=== PATIENT | male | born 1985 | race Caucasian/White ===

== ENCOUNTER 2020-06-23 10:58 | Outpatient (RCR) | payer OTHER, SELFPAY ==
[2020-05-16 08:33] VITALS: BMI 33.8
== END 2020-06-23 23:59 ==
LOC: IMMUN 10:58
PROVIDERS: PCP Family Medicine; Visit Provider Family Medicine
DX: Z23 Encounter for immunization (principal)
CPT/HCPCS: 0011A; 0012A

== ENCOUNTER 2021-07-07 16:57 | Outpatient (CLI) | payer OTHER, SELFPAY ==
[2021-07-07 17:35] LABS: Absolute Lymphocyte Count 2.94 X10^3/uL (0.83-4.51); Absolute Neutrophil Count 5.4 X10^3/uL (2.0-7.7); Basophil# 0.05 X10^3/uL; Basophil% 0.5 % (0-1); Eosinophil# 0.03 X10^3/uL; Eosinophils% 0.3 % (0-5); Hemoglobin 16.4 g/dL (13.0-16.5); Lymphocyte # 2.94 X10^3/ul (0.83-4.51); Lymphocyte % 32.1 % (19-41); Mean Corp Hgb Conc 35.7 g/dL (32-36); Mean Corpuscular Hgb 31.5 pg (27.0-32.0); Mean Corpuscular Volume 88.5 fL (80-94); Mean Platelet Vol. 9.3 fl (6.2-12.0); Monocyte% 7.6 % (0-10); NRBC Flagged by Analyzer 0 % (0-5); Neutrophil # 5.41 X10^3/uL (2.7-7.7); Neutrophil % 59.2 % (47-70); Platelet Count 341 K/mm3 (150-450); RBC Distribution Width CV 11.7 % (11.6-14.6); RBC Distribution Width SD 37.7 fl (35.1-43.9); White Blood Count 9.2 K/mm3 (4.4-11.0)
[2021-07-07 18:19] LABS: ALB/GLOB Ratio 1.3 RATIO (0.9-2.4); AST(SGOT) 23 U/L (15-37); Alanine Aminotransfer ALT/SGPT 49 U/L (16-61); Albumin, Serum 4.3 g/dL (3.2-5.0); Alkaline Phosphatase 64 U/L (45-117); Anion Gap 5 (5-15); BUN 11 mg/dL (7-18); BUN/Creat Ratio 11.1 RATIO (10-20); Calcium,Total 9.7 mg/dL (8.5-10.1); Chloride 107 mmol/L (98-107); Cholesterol 244 mg/dL (200); EST Glomerular Filtration Rate 89 mL/min (>60); Est Glom Filt Rate - Afr Amer 108 mL/min (>60); Globulin 3.2 g/dL (2.2-4.2); Glucose 81 mg/dL (74-106); High Density Lipoprotein 48 mg/dL; Potassium 4.5 mmol/L (3.5-5.1); Protein, Total 7.5 g/dL (6.4-8.2); Sodium Level 141 mmol/L (136-145); Triglycerides 55 mg/dL; Very Low Density Lipoprotein 11 mg/dL (5-40)
== END 2021-07-07 23:59 | disposition home or self-care (01) ==
LOC: MFPLAB 16:58
PROVIDERS: PCP Family Medicine; Referring Provider Family Medicine; Visit Provider Family Medicine
DX: E78.5 Hyperlipidemia, unspecified (principal)
CPT/HCPCS: 36415; 80053; 80061; 85025

== ENCOUNTER → 2021-11-02 | Outpatient (CLI) | payer OTHER, SELFPAY ==
--- NOTE | 2021-11-02 07:07 | ECHOCS_ITS ---
Reason For Study: FAMILY HISTORY Procedure This was a 2D Doppler, Color Flow transthoracic echocardiogram. The study was technically difficult. Exam performed in department. Left Ventricle Normal LV size. Left ventricular systolic function is normal. The estimated ejection fraction is 65 %. No evidence for diastolic dysfunction. No regional wall motion abnormalities noted. Right Ventricle Normal RV size. Normal systolic function. Atria Normal left atrium. Normal right atrium. No doppler evidence for ASD. Mitral Valve There is no mitral annular calcification. Normal mitral valve. Trivial mitral valve insufficiency. Tricuspid Valve Normal tricuspid valve. Trivial tricuspid valve insufficiency. Unable to estimate RV systolic pressure/pulmonary artery pressure due to technically difficult study. Aortic Valve Trisinus/trileaflet aortic valve. Normal aortic valve. Pulmonic Valve The pulmonic valve is not well visualized. Mild (1+) pulmonic valve insufficiency. Great Vessels Normal sized aortic root. Pericardium/Pleural No pericardial effusion. Medication Diluted definity 1.5ml given slow IV push to enhance endocardial definition. MMode/2D Measurements & Calculations LVIDd: 4.2 cm IVSd: 0.93 cm Ao root diam: 3.0 cm LVIDs: 2.7 cm LVPWd: 0.97 cm RVDd: 3.8 cm FS: 35.1 % LAV(MOD-bp): 40.2 ml LVAd ap4: 37.4 cm2 SV(MOD-sp4): 78.3 ml LAV(MOD-bp) Indexed: 17.4 ml/m2 LVLd ap4: 9.5 cm LAV(MOD-sp2): 37.4 ml EDV(MOD-sp4): 121.1 ml LAV(MOD-sp4): 37.7 ml EDV(sp4-el): 125.3 ml LVAs ap4: 19.2 cm2 LVLs ap4: 7.4 cm ESV(MOD-sp4): 42.7 ml ESV(sp4-el): 42.2 ml EF(MOD-sp4): 64.7 % EF(sp4-el): 66.3 % SV(sp4-el): 83.1 ml LA A4 area: 15.7 cm2 LA dimension(2D): 3.4 cm RA A4 area: 11.7 cm2 Time Measurements MV dec time: 0.22 sec Doppler Measurements & Calculations MV E max german: 63.9 cm/sec Lat Peak E' German: 15.0 cm/sec Med Peak E' German: 10.2 cm/sec MV A max german: 49.1 cm/sec E/E' lat: 4.3 E/E' med: 6.3 MV E/A: 1.3 Ao V2 max: 119.7 cm/sec LV V1 max: 119.9 cm/sec PA V2 max: 120.5 cm/sec Ao max P.7 mmHg LV V1 max P.8 mmHg PI end-d german: 90.1 cm/sec ECHO/Echo Complete W/ Contrast Interpretation Summary The study was technically difficult. Left ventricular systolic function is normal. The estimated ejection fraction is 65 %. Trivial mitral valve insufficiency. Trivial tricuspid valve insufficiency. Mild (1+) pulmonic valve insufficiency. Unable to estimate RV systolic pressure/pulmonary artery pressure due to techni americo difficult study. No evidence for diastolic dysfunction. Ordering Physician: Nader Piña Referring Physician: MORIAH YAO Performed By: Joanne Cortez RDCS
--- NOTE | 2021-11-02 13:06 | STRESSREP_ITS ---
Stress Test Report Date: 11-02-2021 Procedure: Exercise tolerance test/imaging study Indications: Family history of premature CAD/CT requiring revascularization corrina Consent: Per the patient Procedure: The patient exercised on a Héctor protocol for 10 minutes and 15 seconds completing Stage III and 1 minute and 15 seconds of Stage IV achieving a peak heart rate of 160 bpm (87% predicted maximal heart rate) with a peak blood pressure 166/80 mmHg and a peak MET capacity of 13 METs. The baseline ECG demonstrated normal sinus rhythm. The peak exercise ECG demonstrated no obvious ECG changes. There was an isolated PVC pretest, during exercise, and recovery. The functional capacity was considered good. There was no complaint of chest discomfort during exercise or recovery. The examination was discontinued secondary to dyspnea. Impression: 1. Technically adequate (percent predicted maximal heart rate greater than 85%) exercise tolerance test 2. Peak exercise ECG with no obvious ECG changes 3. There was an isolated PVC pretest, during exercise, and recovery 4. Nuclear images pending Myocardial perfusion imaging study: Technique: The patient was injected with 11.9 mCi of technetium 99m Cardiolite and subsequently rest SPECT Cardiolite nuclear imaging was obtained in the horizontal long, vertical long, and short axis views. The patient exercised on a Héctor protocol for 10 minutes and 15 seconds completing Stage III and 1 minute and 15 seconds of Stage IV achieving a peak heart rate of 160 bpm (87% predicted maximal heart rate) with a peak blood pressure 166/80 mmHg and a peak MET capacity of 13 METs. The patient was injected with 36.0 mCi of technetium 99m Cardiolite and subsequently stress SPECT Cardiolite nuclear imaging was obtained in the horizontal long, vertical long, and short axis views. A gated Cardiolite study at peak stress was obtained. Interpretation: Rest and stress SPECT Cardiolite nuclear imaging status post realignment, normalization, and attenuation correction, demonstrates an appearance of body motion during image acquisition and status post stress the appearance of diminished myocardial perfusion/tracer uptake in portions of the mid anterolateral segments. There is end systolic thickening and brightening. The gated Cardiolite study demonstrates myocardial thickening and inward wall mo tion. The reported LVEF is 81%. Impression: 1. Rest and stress SPECT Cardiolite nuclear imaging demonstrate the appearance of body motion during image acquisition and status post stress the appearance of diminished myocardial perfusion/tracer uptake in portions of the mid anterolateral segments appearing compatible with an area of stress-induced myocardial ischemia, however, based upon the body motion during image acquisition an element of shifting soft tissue attenuation/artifact cannot be excluded. 2. The gated Cardiolite study reports an LVEF of 81%. This note was generated with [employer] software. It may contain incorrect words, spelling, and punctuation that were not noted in checking the note before signing.
== END | disposition home or self-care (01) ==
PROVIDERS: PCP Family Medicine; Referring Provider Internal Medicine Cardiovascular Disease; Visit Provider Internal Medicine Cardiovascular Disease
DX: I08.1 Rheumatic disorders of both mitral and tricuspid valves (principal); R01.2 Other cardiac sounds; E78.2 Mixed hyperlipidemia; Z82.49 Family history of ischemic heart disease and other diseases of the circulatory system
CPT/HCPCS: 78452; 93017; 93306; A9500; Q9957; A4216; C8929

== ENCOUNTER → 2021-11-21 | Outpatient (CLI) | payer OTHER, SELFPAY ==
--- NOTE | 2021-11-21 09:44 | RAD_ITS ---
EXAM: XR CHEST, 2 VIEWS CLINICAL INDICATION: Pre procedure testing TECHNIQUE: Frontal and lateral views of the chest. This report was created using [employer] report generation technology. COMPARISON: None. FINDINGS: LUNGS AND PLEURAL SPACES: Unremarkable. No consolidation or edema. No pneumothorax. No effusion. HEART: Unremarkable. Cardiac silhouette not enlarged. MEDIASTINUM: Central airways and mediastinal contour are unremarkable. BONES/JOINTS: Unremarkable. SOFT TISSUES: Unremarkable. RAD/Chest PA and Lateral IMPRESSION: No radiographic evidence of acute cardiopulmonary disease. Electronically Signed: Von Rnicon MD at 2:57 EDT ,
[2021-11-21 10:15] LABS: Hematocrit 46.9 % (40-54); Hemoglobin 16.3 g/dL (13.0-16.5); Mean Corp Hgb Conc 34.8 g/dL (32-36); Mean Corpuscular Volume 89.3 fL (80-94); Mean Platelet Vol. 9.4 fl (6.2-12.0); Platelet Count 282 K/mm3 (150-450); RBC Distribution Width CV 11.9 % (11.6-14.6); RBC Distribution Width SD 38.7 fl (35.1-43.9); Red Blood Count 5.25 M/mm3 (4.6-6.2); White Blood Count 7.8 K/mm3 (4.4-11.0)
[2021-11-21 10:40] LABS: Prothrombin Time (Protime)PT. 12.6 SECONDS (11.7-14.9)
[2021-11-21 10:41] LABS: Partial Thromboplast Time 28.3 Seconds (24.1-36.2)
[2021-11-21 11:19] LABS: Anion Gap 5 (5-15); BUN 20 mg/dL (7-18); BUN/Creat Ratio 20.7 RATIO (10-20); Calcium,Total 9.5 mg/dL (8.5-10.1); Chloride 107 mmol/L (98-107); Creatinine, Serum 0.96 mg/dL (0.70-1.30); EST Glomerular Filtration Rate 92 mL/min (>60); Est Glom Filt Rate - Afr Amer 112 mL/min (>60); Glucose 92 mg/dL (74-106); Potassium 4.7 mmol/L (3.5-5.1); Sodium Level 138 mmol/L (136-145)
--- NOTE | 2021-12-01 16:34 | HP.PCM_ITS ---
History and Physical Date of Admission: 12/05/21 [facility] [address] [place], [place] [address] OFFICE VISIT Date of Service:? 10/12/21 MR#: [id number] Acct: [id number] Name:OCTAVIO TOVAR GENE Rep #: [id number] : 1985 ?Provider: Dr. Nader Piña MD Age/Sex:? 36/M Location: [facility] Status: Signed HPI [facility] History of Present Illness Details: Is a 36-year-old white male who presents today for outpatient cardiovascular consultation based upon a strong family history of underlying premature CAD, IN, and CABG.? He states his father experienced an IN following an exercise tolerance test when he was in his 40s that subsequently led to a CABG.? He states his grandfather experienced an IN when he was in his 40s that subsequently led to his demise. The patient states that to the best of his knowledge other than his recent diagnosis of marked hyperlipidemia he has been otherwise healthy.? He does not appear to describe classic angina pectoris type symptoms.? There is been no obvious evidence of CHF or pulmonary edema.? There has been no near-syncope or syncope. To the best of his knowledge he has not gone through previous cardiovascular diagnostic studies in the past. He had an ECG in the office today.? He was noted to be in sinus rhythm with an RSR prime pattern in V1 which was considered nondiagnostic. He was recently diagnosed with hyperlipidemia in June of this year by his PCP.? His total cholesterol was 244 with an LDL of 185 and an HDL of 48.? His triglycerides were 55. He states he wanted to be evaluated by cardiology based upon his family history of premature cardiovascular disease as noted above as well as his diagnosis of hyperlipidemia for the need for additional cardiovascular evaluation/screening, etc. 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 Family history of early CAD Hypersomnia Mixed hyperlipidemia Surgical History? History of tonsillectomy Family History? Grandfather?? Myocardial infarction,? Onset Age: 40Father CAD (coronary artery disease) Myocardial infarction,? Onset Age: 40 History of coronary artery bypass surgery Social History? Smoking Status:? Current every day smoker tobacco type: pipe alcohol intake:? current alcohol intake frequency: a few times a week Alcohol type: beer substance use type:? does not use caffeine:? Yes Type: coffee Number of servings: 1 ROS Const Const: Negative for fatigue, weakness, body ache, fever(s), headache(s), chills, frequent falls, night sweats, daytime sleepiness, difficulty sleeping, excessive sweating, weight gain, weight loss, increased appetite, poor appetite, anorexia or other Eyes Eyes: Negative for blurry vision or double vision ENT ENT: Negative for headache(s), dizziness or balance problems Cardio Chest Pain: No Palpitations: No Edema: None Muscle aches with walking: None Resp Respiratory: Negative for SOB with activity, SOB at rest, SOB orthopnea\SOB lying down, Cough, Coughing up blood/hemoptysis, chest congestion, pain on inspiration, snoring, stridor, wheezing, crackles, paroxysmal nocturnal dyspnea or other Musc Musc: Negative for muscle aches/ myalgia, muscle weakness, joint pain or balance problems Neuro Neuro: Negative for dizziness, lightheadedness, near syncope, syncope, orthostatic symptoms, frequent falls, headache(s), weakness, confusion, memory loss, restless legs, blurry vision, double vision, vertigo, seizures, lack of coordination or other Endo Endo: Negative for fatigue or excessive sweating Cardiology Exam Const Appearance: cooperative, healthy appearing, comfortable, no acute distress, well developed and well groomed Nutritional Appearance: overweight Orientation: alert, awake and oriented x3 Head Head: normal to inspection, normocephalic and atraumatic Ears: hearing grossly normal bilaterally Nose: external nose normal Face and Sinus: face symmetric Eyes Eyelids: eyelids normal Conjunctivae: conjunctivae normal Pupils: PERRL EOM: EOM intact bilaterally Neck Neck: normal visual inspection and full ROM Carotids: normal carotid upstroke Chest Chest inspection: normal inspection of the chest, symmetric chest movement and normal respiratory effort Auscultation: Bilateral: Clear to Auscultation Cardio Palpation: normal PMI Rate: regular rate Rhythm: regular rhythm Heart sounds: S1 normal, S2 normal and mid systolic click GI GI: normal to inspection, soft and bowel sounds present Neuro General: patient alert, patient awake, patient oriented x3, gait normal and moves all extremities Skin Skin: no rashes or lesions noted Extremities Pulses: Normal: Right Femoral Pulse, Left Femoral Pulse, Right Dorsalis Pedis Pulse, Left Dorsalis Pedis Pulse, Right Posterior Tibial Pulse, Left Posterior Tibial Pulse, Right Radial Pulse and Left Radial Pulse Lower Extremity Edema: None: Bilateral Psych Psychological: normal affect Supplemental Info Supplemental Information Labs: ?? ? LDL Cholesterol 185 mg/dL (0-130)? H ?? ? HDL Cholesterol 48 mg/dL (40-) ?? ? Triglycerides 55 mg/dL (-199) ?? ? VLDL Cholesterol 11 mg/dL (5-40) Diagnostics: ?? ? Electrocardiogram ? Pulmonary: ?? ? No Data to Display Assessment and Plan Assessment and Plan (1) Family history of early CAD: ?Status:?Acute ?Plan: At the present time he has a strong family history of premature CAD as noted. It would not be unreasonable to further evaluate him for any obvious evidence of premature CAD. This can start initially with an exercise tolerance test/imaging study. Depending upon the findings he may or may not need further evaluation in the cardiac catheterization laboratory. (2) Mixed hyperlipidemia: ?Status:?Acute ?Plan: He is continuing his lipid-lowering medication. He states his PCP is planning to follow-up on his lipid labs. (3) Mid-systolic click: ?Status:?Acute ?Plan: On examination it did appear that he had a midsystolic click. This does raise concern of underlying valvular heart related issues. Thus it was felt reasonable that he be further evaluated with a transthoracic echocardiogram. ? ? ? Orders: Orders 12 Lead EKG performed by [facility] Today E78.2 - Mixed hyperlipidemia, Z82.49 - Family history of ischemic heart disease and other diseases of the circulatory system ? Echo Complete Today E78.2 - Mixed hyperlipidemia, R01.2 - Other cardiac sounds, Z82.49 - Family history of ischemic heart disease and other diseases of the circulatory system ? Nuclear Stress Test - Treadmil Today E78.2 - Mixed hyperlipidemia, R01.2 - Other cardiac sounds, Z82.49 - Family history of ischemic heart disease and other diseases of the circulatory system ? Plan Details Additional Comments: The above was discussed with him.? He was agreeable to this approach. Thank you for allowing me to participate in the care of your patient.? Please don't hesitate to call if any issues arise. This note was generated using a voice recognition system and there may be incorrect words, spelling or punctuation that were not noted when reviewing the office note prior to saving. Follow Up: ? ? 1 Year (with PFM ) COVID (Procedure Consent) Procedure Criteria Procedure Criteria: Yes Elective The surgeon/proceduralist and patient have discussed in detail the risk of exposure to and/or potential harm posed by the COVID-19 virus with having a surgery/procedure at this time versus the risk of? delaying the surgery/procedure. It is not possible to know either the risk of delaying the surgery or procedure or chance of getting an infection with perfect accuracy, but a joint decision was made between the patient and the surgeon/proceduralist ?to proceed at this time with the scheduled surgery/procedure as indicated on the consent form. Coding Level of Care Code Off vis,new,level 4 Diagnoses Family history of early CAD? Z82.49 Mixed hyperlipidemia? E78.2 Mid-systolic click? R01.2 Coding Level of Care Code Off vis,new,level 4 Diagnoses Family history of early CAD? Z82.49 Mixed hyperlipidemia? E78.2 Mid-systolic click? R01.2 10/12/21 1251 <Electronically signed by Nader Piña MD> Date Nader Piña MD Cosigner Signature: Date (if applicable) CC:? Dr. Arjun Melendez MD ~ Assessment & Plan Addt'l Comments Addendum: The patient has undergone additional cardiovascular evaluation with a trans thoracic echocardiogram on 11-02-2021 and a treadmill stress test/nuclear imaging study on 11-02-2021. The results are noted below. Transthoracic echocardiogram: Interpretation Summary The study was technically difficult. ? Left ventricular systolic function is normal. The estimated ejection fraction is 65 %. Trivial mitral valve insufficiency. Trivial tricuspid valve insufficiency. Mild (1+) pulmonic valve insufficiency. Unable to estimate RV systolic pressure/pulmonary artery pressure due to technically difficult study. No evidence for diastolic dysfunction. [facility] [address] [place] [id number] MR#:? [id number] Acct: [id number] Name: OCTAVIO QUIROZ GENE Rep #: [id number] :? 1985 ? 36 From: Nader Piña MD Primary Care: ? ? Dr. Arjun Melendez MD Status: ? REG CLI Referring Dr:? Nader Piña MD Sex: ? M C Stress Test Report Date: 11-02-2021 Procedure: Exercise tolerance test/imaging study Indications: Family history of premature CAD/IN requiring revascularization therapy Consent: Per the patient Procedure: The patient exercised on a Héctor protocol for 10 minutes and 15 seconds completing Stage III and 1 minute and 15 seconds of Stage IV achieving a peak heart rate of 160 bpm (87% predicted maximal heart rate) with a peak blood pressure 166/80 mmHg and a peak MET capacity of 13 METs. The baseline ECG demonstrated normal sinus rhythm.? The peak exercise ECG demonstrated no obvious ECG changes. There was an isolated PVC pretest, during exercise, and recovery.? The functional capacity was considered good. There was no complaint of chest discomfort during exercise or recovery. The examination was discontinued secondary to dyspnea. Impression: 1.? Technically adequate (percent predicted maximal heart rate greater than 85%) exercise tolerance test 2.? Peak exercise ECG with no obvious ECG changes 3.? There was an isolated PVC pretest, during exercise, and recovery 4.? Nuclear images pending Myocardial perfusion imaging study: Technique: The patient was injected with 11.9 mCi of technetium 99m Cardiolite and subsequently rest SPECT Cardiolite nuclear imaging was obtained in the horizontal long, vertical long, and short axis views. The patient exercised on a Héctor protocol for 10 minutes and 15 seconds completing Stage III and 1 minute and 15 seconds of Stage IV achieving a peak heart rate of 160 bpm (87% predicted maximal heart rate) with a peak blood pressure 166/80 mmHg and a peak MET capacity of 13 METs.? The patient was injected with 36.0 mCi of technetium 99m Cardiolite and subsequently stress SPECT Cardiolite nuclear imaging was obtained in the horizontal long, vertical long, and short axis views.? A gated Cardiolite study at peak stress was obtained. Interpretation: Rest and stress SPECT Cardiolite nuclear imaging status post realignment, normalization, and attenuation correction, demonstrates an appearance of body motion during image acquisition and status post stress the appearance of diminished myocardial perfusion/tracer uptake in portions of the mid anterolateral segments.? There is end systolic thickening and brightening.? The gated Cardiolite study demonstrates myocardial thickening and inward wall motion.? The reported LVEF is 81%. Impression: 1.? Rest and stress SPECT Cardiolite nuclear imaging demonstrate the appearance of body motion during image acquisition and status post stress the appearance of diminished myocardial perfusion/tracer uptake in portions of the mid anterolateral segments appearing compatible with an area of stress-induced myocardial ischemia, however, based upon the body motion during image acquisition an element of shifting soft tissue attenuation/artifact cannot be excluded. 2.? The gated Cardiolite study reports an LVEF of 81%. Based upon the patient's cardiovascular risks and clinical course/objective findings it was recommended the patient undergo further evaluation with diagnostic cardiac catheterization. The procedure and risk were discussed with the patient. He was agreeable to this approach.
[2021-12-04 07:55] VITALS: BMI 32.5
== END | disposition home or self-care (01) ==
LOC: PAT 01-08 10:05
PROVIDERS: PCP Family Medicine; Referring Provider Internal Medicine Cardiovascular Disease; Visit Provider Internal Medicine Cardiovascular Disease
DX: Z01.812 Encounter for preprocedural laboratory examination (principal); R94.39 Abnormal result of other cardiovascular function study; E78.2 Mixed hyperlipidemia; Z82.49 Family history of ischemic heart disease and other diseases of the circulatory system
CPT/HCPCS: 36415; 71046; 80048; 85027; 85610; 85730

== ENCOUNTER 2022-04-17 07:25 | Day surgery (SDC) | payer OTHER, SELFPAY ==
[2022-04-16 10:00] VITALS: BMI 32.8
--- NOTE | 2022-04-16 10:00 | PCM.HP.BLA ---
History and Physical Date of Admission: 04/17/22 [facility] [address] [place] [address] Date of Service:? 04/17/22 Name:OCTAVIO TOVAR : 1985 Age/Sex:? 36/M ?HPI HPI History of Present Illness Surgical H&P: Yes Details: This is a 36-year-old white male who presents today for cardiovascular evaluation based upon an abnormal stress nuclear imaging study for further evaluation with diagnostic cardiac catheterization. He was previously consulted based upon a strong family history of underlying premature CAD, TN, and CABG.? He states his father experienced an TN following an exercise tolerance test when he was in his 40s that subsequently led to a CABG.? He states his grandfather experienced an TN when he was in his 40s that subsequently led to his demise. The patient states that to the best of his knowledge other than his recent diagnosis of marked hyperlipidemia he has been otherwise healthy. He was recently diagnosed with hyperlipidemia in June of this year by his PCP.? His total cholesterol was 244 with an LDL of 185 and an HDL of 48.? His triglycerides were 55. His most recent stress test was noted to be abnormal. This is noted below. He was scheduled to have a cardiac catheterization in October of this year, but his and family were diagnosed with COVID, so this procedure was cancelled at that time. He had an ECG in the office.? He was noted to be in sinus rhythm with occasional ectopic ventricular beats, and RSR prime pattern in V1 which was considered nondiagnostic. From a cardiac standpoint, the patient is doing well. He denies any palpitations, chest pain, pressure or heaviness. He denies SOB, Orthopnea, and PND. He does not have bleeding issues; no blood in urine, stool or nosebleeds. He denies any decrease in energy level, myalgias, or claudication.? He does not have edema, or sudden weight gain. He denies dizziness, lightheadedness, syncopal or near syncopal episodes, and headaches. He states that his blood pressure has been normal at his PCP's office, and Dr. Harris's office. Intake Vital Signs ? 12/05/2207:08 03/06/2215:28 03/06/2215:28 Height 5 ft 11 in 5 ft 11 in 5 ft 11 in Weight: 233 lb 235 lb ? BMI ? 32.8 ? BP ? 154/98 H ? Blood Pressure Location ? Lt brachial ? Position ? Sitting ? Respiration ? 18 ? Pulse ? 93 ? Pulse Source ? Monitor ? Pulse Oximetry (%) ? 97 ? 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 Is patient in pain?: No Allergies acetaminophen [From Percocet] Adverse Reaction (Verified 03/07/22 12:38) Vomitingmorphine Adverse Reaction (Verified 03/07/22 12:38) BURNING EVERYWHEREoxycodone HCl [From Percocet] Adverse Reaction (Verified 03/07/22 12:38) Vomiting Medications dextroamphetamine-amphetamine 20 mg tablet (Adderall) 20 mg PO BID 11/10/17 [History Confirmed 03/07/22] atorvastatin 20 mg tablet 20 mg PO QHS 10/12/21 [History Confirmed 03/07/22] aspirin 81 mg tablet,delayed release (Adult Aspirin Regimen) 81 mg PO DAILY For cardiac catheterization #10 tabs 03/07/22 [Rx Confirmed 03/07/22] PFSH Medical History? Abnormal stress test Family history of early CAD Hypersomnia Mixed hyperlipidemia Surgical History? History of tonsillectomy Family History? Grandfather?? Myocardial infarction,? Onset Age: 40Father CAD (coronary artery disease) Myocardial infarction,? Onset Age: 40 History of coronary artery bypass surgery Social History? Smoking Status:? Current every day smoker tobacco type: pipe alcohol intake:? current alcohol intake frequency: a few times a week Alcohol type: beer substance use type:? does not use caffeine:? Yes Type: coffee Number of servings: 1 ROS Const Const: Negative for fatigue, weakness, fever(s), headache(s), chills, frequent falls, weight gain or weight loss Eyes Eyes: Negative for blind spots, loss of peripheral vision, transient loss of vision, blurry vision, change in vision, double vision, floaters or tunnel vision ENT ENT: Negative for headache(s), dizziness, Nosebleed/epistaxis, balance problems or neck pain Cardio Chest Pain: No Palpitations: No Edema: None Muscle aches with walking: None Resp Respiratory: Negative for SOB with activity, SOB at rest or SOB orthopnea\SOB lying down GI GI: Negative nausea, vomiting, heartburn, bloating, vomiting blood/hematemesis, bright, red blood in stools or black,tarry stools Musc Musc: Negative for muscle aches/ myalgia, muscle weakness, joint pain or balance problems Neuro Neuro: Negative for dizziness, lightheadedness, near syncope, syncope, orthostatic symptoms, frequent falls, headache(s), weakness, blurry vision or double vision Larry Hematologic/Lymphatic: Negative for easy bleeding or easy bruising Endo Endo: Negative for fatigue Cardiology Exam Const Appearance: cooperative, healthy appearing, comfortable, no acute distress, well developed and well groomed Nutritional Appearance: overweight Orientation: alert, awake and oriented x3 Head Head: normal to inspection, normocephalic and atraumatic Ears: hearing grossly normal bilaterally Nose: external nose normal Face and Sinus: face symmetric Eyes Eyelids: eyelids normal Conjunctivae: conjunctivae normal Pupils: PERRL EOM: EOM intact bilaterally Neck Neck: normal visual inspection and full ROM Carotids: normal carotid upstroke Chest Chest inspection: normal inspection of the chest, symmetric chest movement and normal respiratory effort Auscultation: Bilateral: Clear to Auscultation Cardio Palpation: normal PMI Rate: regular rate Rhythm: regular rhythm Heart sounds: S1 normal, S2 normal and mid systolic click GI GI: normal to inspection, soft and bowel sounds present Neuro General: patient alert, patient awake, patient oriented x3, gait normal and moves all extremities Skin Skin: no rashes or lesions noted Extremities Pulses: Normal: Right Femoral Pulse, Left Femoral Pulse, Right Dorsalis Pedis Pulse, Left Dorsalis Pedis Pulse, Right Posterior Tibial Pulse, Left Posterior Tibial Pulse, Right Radial Pulse and Left Radial Pulse Lower Extremity Edema: None: Bilateral Psych Psychological: normal affect Supplemental Info Supplemental Information Echocardiogram 11/02/2021: Interpretation Summary The study was technically difficult. ? Left ventricular systolic function is normal. The estimated ejection fraction is 65 %. Trivial mitral valve insufficiency. Trivial tricuspid valve insufficiency. Mild (1+) pulmonic valve insufficiency. Unable to estimate RV systolic pressure/pulmonary artery pressure due to technically difficult study. No evidence for diastolic dysfunction. ? Stress test 11/02/2021: Procedure: Exercise tolerance test/imaging study Indications: Family history of premature CAD/TN requiring revascularization therapy Consent: Per the patient Procedure: The patient exercised on a Héctor protocol for 10 minutes and 15 seconds completing Stage III and 1 minute and 15 seconds of Stage IV achieving a peak heart rate of 160 bpm (87% predicted maximal heart rate) with a peak blood pressure 166/80 mmHg and a peak MET capacity of 13 METs. The baseline ECG demonstrated normal sinus rhythm.? The peak exercise ECG demonstrated no obvious ECG changes. There was an isolated PVC pretest, during exercise, and recovery. The functional capacity was considered good. There was no complaint of chest discomfort during exercise or recovery. The examination was discontinued secondary to dyspnea. Impression: 1.? Technically adequate (percent predicted maximal heart rate greater than 85%) exercise tolerance test 2.? Peak exercise ECG with no obvious ECG changes 3.? There was an isolated PVC pretest, during exercise, and recovery 4.? Nuclear images pending Myocardial perfusion imaging study: Technique: The patient was injected with 11.9 mCi of technetium 99m Cardiolite and subsequently rest SPECT Cardiolite nuclear imaging was obtained in the horizontal long, vertical long, and short axis views. The patient exercised on a Héctor protocol for 10 minutes and 15 seconds completing Stage III and 1 minute and 15 seconds of Stage IV achieving a peak heart rate of 160 bpm (87% predicted maximal heart rate) with a peak blood pressure 166/80 mmHg and a peak MET capacity of 13 METs.? The patient was injected with 36.0 mCi of technetium 99m Cardiolite and subsequently stress SPECT Cardiolite nuclear imaging was obtained in the horizontal long, vertical long, and short axis views.? A gated Cardiolite study at peak stress was obtained. Interpretation: Rest and stress SPECT Cardiolite nuclear imaging status post realignment, normalization, and attenuation correction, demonstrates an appearance of body motion during image acquisition and status post stress the appearance of diminished myocardial perfusion/tracer uptake in portions of the mid anterolateral segments.? There is end systolic thickening and brightening.? The gated Cardiolite study demonstrates myocardial thickening and inward wall motion.? The reported LVEF is 81%. Impression: 1.? Rest and stress SPECT Cardiolite nuclear imaging demonstrate the appearance of body motion during image acquisition and status post stress the appearance of diminished myocardial perfusion/tracer uptake in portions of the mid anterolateral segments appearing compatible with an area of stress-induced myocardial ischemia, however, based upon the body motion during image acquisition an element of shifting soft tissue attenuation/artifact cannot be excluded. 2.? The gated Cardiolite study reports an LVEF of 81%. Labs: ?? ? LDL Cholesterol 185 mg/dL (0-130)? H ?? ? HDL Cholesterol 48 mg/dL (40-) ?? ? Triglycerides 55 mg/dL (-199) ?? ? VLDL Cholesterol 11 mg/dL (5-40) Diagnostics: ?? ? Electrocardiogram ? Echocardiogram ? Stress Test NM ? Stress Test ? Chest X-Ray ? Pulmonary: ?? ? No Data to Display Assessment and Plan Assessment and Plan (1) Abnormal stress test: ?Status:?Acute ?Plan: Patients most recent stress test from 11/02/2021 was noted to be abnormal. With his family history, and abnormal stress test, patient will undergo a cardiac catheterization on 04/17/[address] Neal. The procedure and risk were discussed with the patient. He agrees to proceed in this manner. Depending on the results of the cardiac catheterization, further recommendations will be made. (2) Family history of early CAD: ?Status:?Acute ?Plan: Patient has a strong family history of coronary artery disease. With his abnormal stress test result, patient will undergo a cardiac catheterization to evaluate with coronary arteries. (3) Mixed hyperlipidemia: ?Status:?Acute ?Plan: Patient has a history of hyperlipidemia.? His PCP monitors this.? His most recent lipid panel from 07/07/2021: Cholesterol 244, HDL 48, LDL 185, triglycerides 55.? At this time, he will continue atorvastatin 20 mg daily, along with aggressive risk factor and lifestyle modifications. ? ? ? Orders: Orders 12 Lead EKG performed by [facility] 03/06/22 R94.39 - Abnormal result of other cardiovascular function study ? Left Heart Cath/COR/LV Percut 03/06/22 R94.39 - Abnormal result of other cardiovascular function study, Z82.49 - Family history of ischemic heart disease and other diseases of the circulatory system ? Basic Metabolic Profile (BMP) 03/06/22 R94.39 - Abnormal result of other cardiovascular function study ? CBC W/Diff, Automated 03/06/22 R94.39 - Abnormal result of other cardiovascular function study ? Medications: New aspirin (Adult Aspirin Regimen) ?? Start 04/10/2022 81 mg? PO DAILY 10 tabs 0RF For cardiac catheterization ? ? Plan Details Additional Comments: Patient will follow up in 6 months, or sooner if needed. Thank you for allowing me to participate in the care of your patient. Please don't hesitate to call if any issues arise. This note was generated using a voice recognition system and there may be incorrect words, spelling, or punctuation that were not noted when reviewing the office note prior to saving. Portions of this documentation were copied and pasted from previous office visit notes to provide a cohesive continuity of the history. The note has been reviewed, edited, and updated, as necessary. Follow Up: ? ? Keep as is (PFM) COVID (Procedure Consent) Procedure Criteria Procedure Criteria: Yes Elective The surgeon/proceduralist and patient have discussed in detail the risk of exposure to and/or potential harm posed by the COVID-19 virus with having a surgery/procedure at this time versus the risk of? delaying the surgery/procedure. It is not possible to know either the risk of delaying the surgery or procedure or chance of getting an infection with perfect accuracy, but a joint decision was made between the patient and the surgeon/proceduralist ?to proceed at this time with the scheduled surgery/procedure as indicated on the consent form. Coding Level of Care Code Off vis,est,level 4 Diagnoses Abnormal stress test? R94.39 Family history of early CAD? Z82.49 Mixed hyperlipidemia? E78.2 Coding Level of Care Code Off vis,est,level 4 Diagnoses Abnormal stress test? R94.39 Family history of early CAD? Z82.49 Mixed hyperlipidemia? E78.2 CC:? Dr. Arjun Melendez MD ~
--- NOTE | 2022-04-16 15:55 | HP.PCM_ITS ---
History and Physical Date of Admission: 04/17/22 This is a 36-year-old white male who presents today for left heart catheterization. He was previously consulted based upon a strong family history of underlying premature CAD, MA, and CABG.? He states his father experienced an MA following an exercise tolerance test when he was in his 40s that subsequently led to a CABG.? He states his grandfather experienced an MA when he was in his 40s that subsequently led to his demise. The patient states that to the best of his knowledge other than his recent diagnosis of marked hyperlipidemia he has been otherwise healthy. He was recently diagnosed with hyperlipidemia in June of this year by his PCP.? His total cholesterol was 244 with an LDL of 185 and an HDL of 48.? His triglycerides were 55. His most recent stress test was noted to be abnormal. This is noted below. He was scheduled to have a cardiac catheterization in October of this year, but his and family were diagnosed with COVID, so this procedure was cancelled at that time. He had an ECG in the office today.? He was noted to be in sinus rhythm with occasional ectopic ventricular beats, and RSR prime pattern in V1 which was considered nondiagnostic. From a cardiac standpoint, the patient is doing well. He denies any palpitations, chest pain, pressure or heaviness. He denies SOB, Orthopnea, and PND. He does not have bleeding issues; no blood in urine, stool or nosebleeds. He denies any decrease in energy level, myalgias, or claudication.? He does not have edema, or sudden weight gain. He denies dizziness, lightheadedness, syncopal or near syncopal episodes, and headaches. He states that his blood pressure has been normal at his PCP's office, and Dr. Harris's office. 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 Abnormal stress test Family history of early CAD Hypersomnia Mixed hyperlipidemia Surgical History? History of tonsillectomy Family History? Grandfather?? Myocardial infarction,? Onset Age: 40Father CAD (coronary artery disease) Myocardial infarction,? Onset Age: 40 History of coronary artery bypass surgery Social History? Smoking Status:? Current every day smoker tobacco type: pipe alcohol intake:? current alcohol intake frequency: a few times a week Alcohol type: beer substance use type:? does not use caffeine:? Yes Type: coffee Number of servings: 1 ROS Const Const: Negative for fatigue, weakness, fever(s), headache(s), chills, frequent falls, weight gain or weight loss Eyes Eyes: Negative for blind spots, loss of peripheral vision, transient loss of vision, blurry vision, change in vision, double vision, floaters or tunnel vision ENT ENT: Negative for headache(s), dizziness, Nosebleed/epistaxis, balance problems or neck pain Cardio Chest Pain: No Palpitations: No Edema: None Muscle aches with walking: None Resp Respiratory: Negative for SOB with activity, SOB at rest or SOB orthopnea\SOB lying down GI GI: Negative nausea, vomiting, heartburn, bloating, vomiting blood/hematemesis, bright, red blood in stools or black,tarry stools Musc Musc: Negative for muscle aches/ myalgia, muscle weakness, joint pain or balance problems Neuro Neuro: Negative for dizziness, lightheadedness, near syncope, syncope, orthostatic symptoms, frequent falls, headache(s), weakness, blurry vision or double vision Larry Hematologic/Lymphatic: Negative for easy bleeding or easy bruising Endo Endo: Negative for fatigue Cardiology Exam Const Appearance: cooperative, healthy appearing, comfortable, no acute distress, well developed and well groomed Nutritional Appearance: overweight Orientation: alert, awake and oriented x3 Head Head: normal to inspection, normocephalic and atraumatic Ears: hearing grossly normal bilaterally Nose: external nose normal Face and Sinus: face symmetric Eyes Eyelids: eyelids normal Conjunctivae: conjunctivae normal Pupils: PERRL EOM: EOM intact bilaterally Neck Neck: normal visual inspection and full ROM Carotids: normal carotid upstroke Chest Chest inspection: normal inspection of the chest, symmetric chest movement and normal respiratory effort Auscultation: Bilateral: Clear to Auscultation Cardio Palpation: normal PMI Rate: regular rate Rhythm: regular rhythm Heart sounds: S1 normal, S2 normal and mid systolic click GI GI: normal to inspection, soft and bowel sounds present Neuro General: patient alert, patient awake, patient oriented x3, gait normal and moves all extremities Skin Skin: no rashes or lesions noted Extremities Pulses: Normal: Right Femoral Pulse, Left Femoral Pulse, Right Dorsalis Pedis Pulse, Left Dorsalis Pedis Pulse, Right Posterior Tibial Pulse, Left Posterior Tibial Pulse, Right Radial Pulse and Left Radial Pulse Lower Extremity Edema: None: Bilateral Psych Psychological: normal affect Supplemental Info Supplemental Information Echocardiogram 11/02/2021: Interpretation Summary The study was technically difficult. ? Left ventricular systolic function is normal. The estimated ejection fraction is 65 %. Trivial mitral valve insufficiency. Trivial tricuspid valve insufficiency. Mild (1+) pulmonic valve insufficiency. Unable to estimate RV systolic pressure/pulmonary artery pressure due to technically difficult study. No evidence for diastolic dysfunction.? Stress test 11/02/2021: Procedure: Exercise tolerance test/imaging study Indications: Family history of premature CAD/MA requiring revascularization therapy Consent: Per the patient Procedure: The patient exercised on a Héctor protocol for 10 minutes and 15 seconds completing Stage III and 1 minute and 15 seconds of Stage IV achieving a peak heart rate of 160 bpm (87% predicted maximal heart rate) with a peak blood pressure 166/80 mmHg and a peak MET capacity of 13 METs. The baseline ECG demonstrated normal sinus rhythm.? The peak exercise ECG demonstrated no obvious ECG changes. There was an isolated PVC pretest, during exercise, and recovery. The functional capacity was considered good. There was no complaint of chest discomfort during exercise or recovery. The examination was discontinued secondary to dyspnea. Impression: 1.? Technically adequate (percent predicted maximal heart rate greater than 85%) exercise tolerance test 2.? Peak exercise ECG with no obvious ECG changes 3.? There was an isolated PVC pretest, during exercise, and recovery 4.? Nuclear images pending Myocardial perfusion imaging study: Technique: The patient was injected with 11.9 mCi of technetium 99m Cardiolite and subsequently rest SPECT Cardiolite nuclear imaging was obtained in the horizontal long, vertical long, and short axis views. The patient exercised on a Héctor protocol for 10 minutes and 15 seconds completing Stage III and 1 minute and 15 seconds of Stage IV achieving a peak heart rate of 160 bpm (87% predicted maximal heart rate) with a peak blood pressure 166/80 mmHg and a peak MET capacity of 13 METs.? The patient was injected with 36.0 mCi of technetium 99m Cardiolite and subsequently stress SPECT Cardiolite nuclear imaging was obtained in the horizontal long, vertical long, and short axis views.? A gated Cardiolite study at peak stress was obtained. Interpretation: Rest and stress SPECT Cardiolite nuclear imaging status post realignment, normalization, and attenuation correction, demonstrates an appearance of body motion during image acquisition and status post stress the appearance of diminished myocardial perfusion/tracer uptake in portions of the mid anterolateral segments.? There is end systolic thickening and brightening.? The gated Cardiolite study demonstrates myocardial thickening and inward wall motion.? The reported LVEF is 81%. Impression: 1.? Rest and stress SPECT Cardiolite nuclear imaging demonstrate the appearance of body motion during image acquisition and status post stress the appearance of diminished myocardial perfusion/tracer uptake in portions of the mid anterolateral segments appearing compatible with an area of stress-induced myocardial ischemia, however, based upon the body motion during image acquisition an element of shifting soft tissue attenuation/artifact cannot be excluded. 2.? The gated Cardiolite study reports an LVEF of 81%. Labs: ?? ? LDL Cholesterol 185 mg/dL (0-130)? H ?? ? HDL Cholesterol 48 mg/dL (40-) ?? ? Triglycerides 55 mg/dL (-199) ?? ? VLDL Cholesterol 11 mg/dL (5-40) Diagnostics: ?? ? Electrocardiogram ? Echocardiogram ? Stress Test NM ? Stress Test ? Chest X-Ray ? Pulmonary: ?? ? No Data to Display Assessment and Plan Assessment and Plan (1) Abnormal stress test: ?Status:?Acute ?Plan: Patients most recent stress test from 11/02/2021 was noted to be abnormal. With his family history, and abnormal stress test, patient will be rescheduled for a cardiac catheterization on 04/17/[address] Neal. Cardiac catheterization instructions given to patient, and he verbalizes understanding. Depending on the results of the cardiac catheterization, further recommendations will be made. (2) Family history of early CAD: ?Status:?Acute ?Plan: Patient has a strong family history of coronary artery disease. With his abnormal stress test result, patient will undergo a cardiac catheterization to evaluate with coronary arteries. (3) Mixed hyperlipidemia: ?Status:?Acute ?Plan: Patient has a history of hyperlipidemia.? His PCP monitors this.? His most recent lipid panel from 07/07/2021: Cholesterol 244, HDL 48, LDL 185, triglycerides 55.? At this time, he will continue atorvastatin 20 mg daily, along with aggressive risk factor and lifestyle modifications.
[2022-04-17 07:41] LABS: Absolute Lymphocyte Count 2.26 X10^3/uL (0.83-4.51); Absolute Neutrophil Count 5.8 X10^3/uL (2.0-7.7); Basophil# 0.03 X10^3/uL; Basophil% 0.3 % (0-1); Eosinophil# 0.11 X10^3/uL; Eosinophils% 1.2 % (0-5); Hemoglobin 15.6 g/dL (13.0-16.5); Lymphocyte # 2.26 X10^3/ul (0.83-4.51); Lymphocyte % 25.1 % (19-41); Mean Corp Hgb Conc 34.7 g/dL (32-36); Mean Corpuscular Hgb 30.8 pg (27.0-32.0); Mean Corpuscular Volume 88.8 fL (80-94); Monocyte# 0.74 X10^3/uL; Monocyte% 8.2 % (0-10); NRBC Flagged by Analyzer 0 % (0-5); Neutrophil # 5.83 X10^3/uL (2.7-7.7); Platelet Count 286 K/mm3 (150-450); RBC Distribution Width CV 11.9 % (11.6-14.6); RBC Distribution Width SD 38.8 fl (35.1-43.9); Red Blood Count 5.07 M/mm3 (4.6-6.2)
[2022-04-17 07:56] LABS: Anion Gap 2 (5-15); BUN 11 mg/dL (7-18); Calcium,Total 8.9 mg/dL (8.5-10.1); Chloride 108 mmol/L (98-107); Creatinine, Serum 0.92 mg/dL (0.70-1.30); EST Glomerular Filtration Rate 97 mL/min (>60); Est Glom Filt Rate - Afr Amer 118 mL/min (>60); Estimated Creatinine Clearance 114.81 ml/min; Glucose 113 mg/dL (74-106); Potassium 4.5 mmol/L (3.5-5.1); Sodium Level 140 mmol/L (136-145)
--- NOTE | 2022-04-17 09:44 | CL.D_ITS ---
Patient Name: OCTAVIO QUIROZ Study Date: 04/17/2022 Performing: Nader Piña MD Ht: 71 inches 180.34 cm : 1985 Wt: 234.99 lbs 106.59 kg Age: 37 Gender: male BSA: 2.26 PROCEDURE(S) PERFORMED DC01-(21973)LHC/COR/LV CLINICAL PROFILE AND INDICATIONS Indications: Suspected CAD Heart Failure: None Stress/Imaging Date: 11/02/2021tress Test with SPECT MPI: Positive Intermediate Risk Angina Classification Anginal Classification w/in 2 Weeks: No symptoms CAD Presentations: Other: abnormal stress test CONCLUSIONS Elevated Left Ventricular End Diastolic Pressure (mild) Normal LV size, wall motion,and systolic function LVEF: by LV gram 60 % [place] Multivessel CAD (non obstructive) RECOMMENDATIONS Risk factor modification Medical therapy DESCRIPTION OF PROCEDURE The patient arrived to the procedure lab. The risks and benefits of the procedure as well as a full description of our services here and current unavailability of surgical backup were fully explained to the patient and/or their significant other prior to the catheterization. The Timeout was completed, verifying the correct patient and procedure. The patient's procedural site was prepped and draped in the usual fashion. Local anesthetic was given subcutaneously to right radial region with Lidocaine 2%. Using a modified Seldinger technique, arterial access was obtained via the right radial artery, a 6Fr sheath was inserted. Left Coronary Artery selective angiography was performed in multiple views using a 5 Fr. 4.0 Clinton catheter. Right Coronary Artery selective angiography was then performed in multiple views using a 5 Fr. 4.0 [place] catheter. Left Ventriculography was performed in CURRIE projection using a 5 Fr. Pigtail catheter. LV to AO pullback pressures were then recorded.The arterial sheath was pulled and a TR Band was applied for hemostasis. 12cc of air CORONARY ANGIOGRAPHY DOMINANCE: Right Dominant LEFT HEART ASSESSMENT Left Ventricular Ejection Fraction: by LV Gram 60 % Normal LV wall motion Elevated Left Ventricular End Diastolic Pressure LVEDP: 16 mmHg LEFT MAIN: Mild luminal irregularities LEFT ANTERIOR DESCENDING ARTERY: PROX LAD: Mild luminal irregularities CIRCUMFLEX ARTERY: Angiographically normal RIGHT CORONARY ARTERY: MID RCA: Mild luminal irregularities AORTIC ROOT: Angiographically normal COMPLICATIONS No Complications PROCEDURE MEDICATIONS Versed 1 mg IV Versed 1 mg IV Oxygen: 2 L/min via nasal cannula Benadryl 50 mg IV @ 04/17/2022 09:33:57 Heparin given IA 04/17/2022 09:17:38 Verapamil 2.5mg, Ntg 100mcgs, 3000 units of Heparin given IA 04/17/2022 09:17:38 SUMMARY OF HEMODYNAMIC DATA Time AIR REST ECG 07:51:36 Art 144/80 (98) 09:08:31 AO 115/69 (90) SA 09:20:45 LV 139/-4, 21 09:26:05 LV 142/-6, 16 09:26:13 LV 141/-3, 17 09:26:58 LVp 139/-3, 17 09:27:04 AOp 119/75 (95) 09:27:11 Signed By Nader Piña MD On 04/17/2022 09:44:12 Nader Piña MD
[2022-04-17 10:44] LABS: AST(SGOT) 22 U/L (15-37); Alanine Aminotransfer ALT/SGPT 61 U/L (16-61); Albumin, Serum 3.7 g/dL (3.2-5.0); Alkaline Phosphatase 61 U/L (45-117); Bilirubin, Direct 0.25 mg/dL (0.00-0.30); Cholesterol 145 mg/dL (200); Globulin 3.5 g/dL (2.2-4.2); High Density Lipoprotein 40 mg/dL; Protein, Total 7.2 g/dL (6.4-8.2); Triglycerides 60 mg/dL; Very Low Density Lipoprotein 12 mg/dL (5-40)
--- NOTE | 2022-04-17 15:14 | HP.PCM_ITS ---
History and Physical Date of Admission: 04/17/22 [facility] [address] [place] [address] Date of Service:? 04/17/2022 Name:OCTAVIO TOVAR : 1985 Age/Sex:? 36/M ?HPI HPI History of Present Illness Surgical H&P: Yes Details: This is a 36-year-old white male who presents today for outpatient cardiovascular evaluation. He was previously consulted based upon a strong family history of underlying premature CAD, VT, and CABG.? He states his father experienced an VT following an exercise tolerance test when he was in his 40s that subsequently led to a CABG.? He states his grandfather experienced an VT when he was in his 40s that subsequently led to his demise. The patient states that to the best of his knowledge other than his recent diagnosis of marked hyperlipidemia he has been otherwise healthy. He was recently diagnosed with hyperlipidemia in June of this year by his PCP.? His total cholesterol was 244 with an LDL of 185 and an HDL of 48.? His triglycerides were 55. His most recent stress test was noted to be abnormal. This is noted below. He was scheduled to have a cardiac catheterization in October of this year, but his and family were diagnosed with COVID, so this procedure was cancelled at that time. He had an ECG in the office.? He was noted to be in sinus rhythm with occasional ectopic ventricular beats, and RSR prime pattern in V1 which was considered nondiagnostic. From a cardiac standpoint, the patient is doing well. He denies any palpitations, chest pain, pressure or heaviness. He denies SOB, Orthopnea, and PND. He does not have bleeding issues; no blood in urine, stool or nosebleeds. He denies any decrease in energy level, myalgias, or claudication.? He does not have edema, or sudden weight gain. He denies dizziness, lightheadedness, syncopal or near syncopal episodes, and headaches. He states that his blood pres sure has been normal at his PCP's office, and Dr. Harris's office. Intake Vital Signs ? 12/05/2207:08 03/06/2215:28 03/06/2215:28 Height 5 ft 11 in 5 ft 11 in 5 ft 11 in Weight: 233 lb 235 lb ? BMI ? 32.8 ? BP ? 154/98 H ? Blood Pressure Location ? Lt brachial ? Position ? Sitting ? Respiration ? 18 ? Pulse ? 93B ? Pulse Source ? Monitor ? Pulse Oximetry (%) ? 97 ? Intake Visit Reasons:?DISCUSS POSSIBLE CATH Toll Test Worker Required: No Is patient in pain?: No Allergies acetaminophen [From Percocet] Adverse Reaction (Verified 03/07/22 12:38) Vomitingmorphine Adverse Reaction (Verified 03/07/22 12:38) BURNING EVERYWHEREoxycodone HCl [From Percocet] Adverse Reaction (Verified 03/07/22 12:38) Vomiting Medications dextroamphetamine-amphetamine 20 mg tablet (Adderall) 20 mg PO BID 11/10/17 [History Confirmed 03/07/22] atorvastatin 20 mg tablet 20 mg PO QHS 10/12/21 [History Confirmed 03/07/22] aspirin 81 mg tablet,delayed release (Adult Aspirin Regimen) 81 mg PO DAILY For cardiac catheterization #10 tabs 03/07/22 [Rx Confirmed 03/07/22] PFSH Medical History? Abnormal stress test Family history of early CAD Hypersomnia Mixed hyperlipidemia Surgical History? History of tonsillectomy Family History? Grandfather?? Myocardial infarction,? Onset Age: 40Father CAD (coronary artery disease) Myocardial infarction,? Onset Age: 40 History of coronary artery bypass surgery Social History? Smoking Status:? Current every day smoker tobacco type: pipe alcohol intake:? current alcohol intake frequency: a few times a week Alcohol type: beer substance use type:? does not use caffeine:? Yes Type: coffee Number of servings: 1 ROS Const Const: Negative for fatigue, weakness, fever(s), headache(s), chills, frequent falls, weight gain or weight loss Eyes Eyes: Negative for blind spots, loss of peripheral vision, transient loss of vision, blurry vision, change in vision, double vision, floaters or tunnel vision ENT ENT: Negative for headache(s), dizziness, Nosebleed/epistaxis, balance problems or neck pain Cardio Chest Pain: No Palpitations: No Edema: None Muscle aches with walking: None Resp Respiratory: Negative for SOB with activity, SOB at rest or SOB orthopnea\SOB lying down GI GI: Negative nausea, vomiting, heartburn, bloating, vomiting blood/hematemesis, bright, red blood in stools or black,tarry stools Musc Musc: Negative for muscle aches/ myalgia, muscle weakness, joint pain or balance problems Neuro Neuro: Negative for dizziness, lightheadedness, near syncope, syncope, orthostatic symptoms, frequent falls, headache(s), weakness, blurry vision or double vision Larry Hematologic/Lymphatic: Negative for easy bleeding or easy bruising Endo Endo: Negative for fatigue Cardiology Exam Const Appearance: cooperative, healthy appearing, comfortable, no acute distress, well developed and well groomed Nutritional Appearance: overweight Orientation: alert, awake and oriented x3 Head Head: normal to inspection, normocephalic and atraumatic Ears: hearing grossly normal bilaterally Nose: external nose normal Face and Sinus: face symmetric Eyes Eyelids: eyelids normal Conjunctivae: conjunctivae normal Pupils: PERRL EOM: EOM intact bilaterally Neck Neck: normal visual inspection and full ROM Carotids: normal carotid upstroke Chest Chest inspection: normal inspection of the chest, symmetric chest movement and normal respiratory effort Auscultation: Bilateral: Clear to Auscultation Cardio Palpation: normal PMI Rate: regular rate Rhythm: regular rhythm Heart sounds: S1 normal, S2 normal and mid systolic click GI GI: normal to inspection, soft and bowel sounds present Neuro General: patient alert, patient awake, patient oriented x3, gait normal and moves all extremities Skin Skin: no rashes or lesions noted Extremities Pulses: Normal: Right Femoral Pulse, Left Femoral Pulse, Right Dorsalis Pedis Pulse, Left Dorsalis Pedis Pulse, Right Posterior Tibial Pulse, Left Posterior Tibial Pulse, Right Radial Pulse and Left Radial Pulse Lower Extremity Edema: None: Bilateral Psych Psychological: normal affect Supplemental Info Supplemental Information Echocardiogram 11/02/2021: Interpretation Summary The study was technically difficult. ? Left ventricular systolic function is normal. The estimated ejection fraction is 65 %. Trivial mitral valve insufficiency. Trivial tricuspid valve insufficiency. Mild (1+) pulmonic valve insufficiency. Unable to estimate RV systolic pressure/pulmonary artery pressure due to technically difficult study. No evidence for diastolic dysfunction. ? Stress test 11/02/2021: Procedure: Exercise tolerance test/imaging study Indications: Family history of premature CAD/VT requiring revascularization therapy Consent: Per the patient Procedure: The patient exercised on a Héctor protocol for 10 minutes and 15 seconds completing Stage III and 1 minute and 15 seconds of Stage IV achieving a peak heart rate of 160 bpm (87% predicted maximal heart rate) with a peak blood pressure 166/80 mmHg and a peak MET capacity of 13 METs. The baseline ECG demonstrated normal sinus rhythm.? The peak exercise ECG demonstrated no obvious ECG changes. There was an isolated PVC pretest, during exercise, and recovery. The functional capacity was considered good. There was no complaint of chest discomfort during exercise or recovery. The examination was discontinued secondary to dyspnea. Impression: 1.? Technically adequate (percent predicted maximal heart rate greater than 85%) exercise tolerance test 2.? Peak exercise ECG with no obvious ECG changes 3.? There was an isolated PVC pretest, during exercise, and recovery 4.? Nuclear images pending Myocardial perfusion imaging study: Technique: The patient was injected with 11.9 mCi of technetium 99m Cardiolite and subsequently rest SPECT Cardiolite nuclear imaging was obtained in the horizontal long, vertical long, and short axis views. The patient exercised on a Héctor protocol for 10 minutes and 15 seconds completing Stage III and 1 minute and 15 seconds of Stage IV achieving a peak heart rate of 160 bpm (87% predicted maximal heart rate) with a peak blood pressure 166/80 mmHg and a peak MET capacity of 13 METs.? The patient was injected with 36.0 mCi of technetium 99m Cardiolite and subsequently stress SPECT Cardiolite nuclear imaging was obtained in the horizontal long, vertical long, and short axis views.? A gated Cardiolite study at peak stress was obtained. Interpretation: Rest and stress SPECT Cardiolite nuclear imaging status post realignment, normalization, and attenuation correction, demonstrates an appearance of body motion during image acquisition and status post stress the appearance of diminished myocardial perfusion/tracer uptake in portions of the mid anterolateral segments.? There is end systolic thickening and brightening.? The gated Cardiolite study demonstrates myocardial thickening and inward wall motion.? The reported LVEF is 81%. Impression: 1.? Rest and stress SPECT Cardiolite nuclear imaging demonstrate the appearance of body motion during image acquisition and status post stress the appearance of diminished myocardial perfusion/tracer uptake in portions of the mid anterolateral segments appearing compatible with an area of stress-induced myocardial ischemia, however, based upon the body motion during image acquisition an element of shifting soft tissue attenuation/artifact cannot be excluded. 2.? The gated Cardiolite study reports an LVEF of 81%. Labs: ?? ? LDL Cholesterol 185 mg/dL (0-130)? H ?? ? HDL Cholesterol 48 mg/dL (40-) ?? ? Triglycerides 55 mg/dL (-199) ?? ? VLDL Cholesterol 11 mg/dL (5-40) Diagnostics: ?? ? Electrocardiogram ? Echocardiogram ? Stress Test NM ? Stress Test ? Chest X-Ray ? Pulmonary: ?? ? No Data to Display Assessment and Plan Assessment and Plan (1) Abnormal stress test: ?Status:?Acute ?Plan: Patients most recent stress test from 11/02/2021 was noted to be abnormal. With his family history, and abnormal stress test, patient will be rescheduled for a cardiac catheterization on 04/17/[address] Neal. Cardiac catheterization instructions given to patient, and he verbalizes understanding. Depending on the results of the cardiac catheterization, further recommendations will be made. (2) Family history of early CAD: ?Status:?Acute ?Plan: Patient has a strong family history of coronary artery disease. With his abn ormal stress test result, patient will undergo a cardiac catheterization to evaluate with coronary arteries. (3) Mixed hyperlipidemia: ?Status:?Acute ?Plan: Patient has a history of hyperlipidemia.? His PCP monitors this.? His most recent lipid panel from 07/07/2021: Cholesterol 244, HDL 48, LDL 185, triglycerides 55.? At this time, he will continue atorvastatin 20 mg daily, along with aggressive risk factor and lifestyle modifications. ? ? ? Orders: Orders 12 Lead EKG performed by [facility] 03/06/22 R94.39 - Abnorma l result of other cardiovascular function study ? Left Heart Cath/COR/LV Percut 03/06/22 R94.39 - Abnormal result of [facility] er cardiovascular function study, Z82.49 - Family history of ischemic heart disease and other diseases of the circulatory system ? Basic Metabolic Profile (BMP) 03/06/22 R94.39 - Abnormal result of oth er cardiovascular function study ? CBC W/Diff, Automated 03/06/22 R94.39 - Abnormal result of ot er cardiovascular function study ? Medications: New aspirin (Adult Aspirin Regimen) ?? Start 04/10/2022 81 mg? PO DAILY 10 tabs 0RF For cardiac catheterization ? ? Plan Details Additional Comments: Patient will follow up in 6 months, or sooner if needed. Thank you for allowing me to participate in the care of your patient. Please don't hesitate to call if any issues arise. This note was generated using a voice recognition system and there may be incorrect words, spelling, or punctuation that were not noted when reviewing the office note prior to saving. Portions of this documentation were copied and pasted from previous office visit notes to provide a cohesive continuity of the history. The note has been reviewed, edited, and updated, as necessary. Follow Up: ? ? Keep as is (PFM) COVID (Procedure Consent) Procedure Criteria Procedure Criteria: Yes Elective The surgeon/proceduralist and patient have discussed in detail the risk of exposure to and/or potential harm posed by the COVID-19 virus with having a surgery/procedure at this time versus the risk of? delaying the surgery/procedure. It is not possible to know either the risk of delaying the surgery or procedure or chance of getting an infection with perfect accuracy, but a joint decision was made between the patient and the surgeon/proceduralist ?to proceed at this time with the scheduled surgery/procedure as indicated on the consent form. Coding Level of Care Code Off vis,est,level 4 Diagnoses Abnormal stress test? R94.39 Family history of early CAD? Z82.49 Mixed hyperlipidemia? E78.2 Coding Level of Care Code Off vis,est,level 4 Diagnoses Abnormal stress test? R94.39 Family history of early CAD? Z82.49 Mixed hyperlipidemia? E78.2 CC:? Dr. Arjun Melendez MD ~ Assessment & Plan Addt'l Comments Addendum: Date: 04-17-2022 The patient's clinical case was discussed and reviewed with the patient. Based upon the patient's cardiovascular risk factors and objective findings a recommendation was made to proceed with further evaluation with diagnostic cardiac catheterization. The procedure and risks have been discussed with the patient. He was agreeable to this approach. This note was generated using a voice recognition system and there may be incorrect words, spelling or punctuation that were not noted when reviewing the office note prior to saving. Comment: The the original document used in preparation for this procedure appears to not be accessible secondary to IS/IT issues. IS/IT did note that another document would need to be created to be associated with this procedure. This document is to serve that purpose. This note was generated using a voice recognition system and there may be incorrect words, spelling or punctuation that were not noted when reviewing the office note prior to saving.
== END 2022-04-17 11:20 | disposition home or self-care (01) ==
PROVIDERS: Nurse Practitioner Gerontology; PCP Family Medicine; Referring Provider Internal Medicine Cardiovascular Disease; Visit Provider Internal Medicine Cardiovascular Disease
DX: I25.10 Atherosclerotic heart disease of native coronary artery without angina pectoris (principal); R94.39 Abnormal result of other cardiovascular function study; E78.2 Mixed hyperlipidemia; F17.290 Nicotine dependence, other tobacco product, uncomplicated; Z79.899 Other long term (current) drug therapy; Z82.49 Family history of ischemic heart disease and other diseases of the circulatory system
CPT/HCPCS: 36415; 80048; 80061; 80076; 85025; 93458; 99152; 99153; J7040; C1769; C1894; Q9967

== ENCOUNTER → 2023-10-08 | Outpatient (CLI) | payer OTHER, SELFPAY ==
[2023-10-08 17:39] LABS: Absolute Lymphocyte Count 2.72 X10^3/uL (0.83-4.51); Basophil# 0.05 X10^3/uL; Basophil% 0.6 % (0-1); Eosinophil# 0.11 X10^3/uL; Eosinophils% 1.3 % (0-5); Hematocrit 46.1 % (40-54); Hemoglobin 15.7 g/dL (13.0-16.5); Lymphocyte # 2.72 X10^3/ul (0.83-4.51); Lymphocyte % 31.4 % (19-41); Mean Corp Hgb Conc 34.1 g/dL (32-36); Mean Corpuscular Hgb 30.4 pg (27.0-32.0); Mean Corpuscular Volume 89.2 fL (80-94); Mean Platelet Vol. 9.1 fl (6.2-12.0); Monocyte# 0.76 X10^3/uL; Monocyte% 8.8 % (0-10); NRBC Flagged by Analyzer 0 % (0-5); Neutrophil # 5.02 X10^3/uL (2.7-7.7); Neutrophil % 57.8 % (47-70); Platelet Count 301 K/mm3 (150-450); RBC Distribution Width CV 11.7 % (11.6-14.6); RBC Distribution Width SD 37.7 fl (35.1-43.9); Red Blood Count 5.17 M/mm3 (4.6-6.2); White Blood Count 8.7 K/mm3 (4.4-11.0)
[2023-10-08 18:30] LABS: AST(SGOT) 25 U/L (15-37); Alanine Aminotransfer ALT/SGPT 48 U/L (16-61); Albumin, Serum 3.8 g/dL (3.2-5.0); Alkaline Phosphatase 71 U/L (45-117); Anion Gap 3 (5-15); BUN 11 mg/dL (7-18); BUN/Creat Ratio 11.7 RATIO (10-20); Calcium,Total 9.3 mg/dL (8.5-10.1); Chloride 104 mmol/L (98-107); Cholesterol 222 mg/dL (200); Creatinine, Serum 0.94 mg/dL (0.70-1.30); EST Glomerular Filtration Rate 94 mL/min (>60); Est Glom Filt Rate - Afr Amer 114 mL/min (>60); Globulin 3.7 g/dL (2.2-4.2); Glucose 96 mg/dL (74-106); High Density Lipoprotein 37 mg/dL; Protein, Total 7.5 g/dL (6.4-8.2); Sodium Level 135 mmol/L (136-145); Thyroid Stim Hormone (TSH) 2.04 uIU/mL (0.358-3.74); Triglycerides 229 mg/dL; Very Low Density Lipoprotein 46 mg/dL (5-40)
== END | disposition home or self-care (01) ==
LOC: MTLAB 15:53
PROVIDERS: PCP Family Medicine; Referring Provider Family Medicine; Visit Provider Family Medicine
DX: E78.5 Hyperlipidemia, unspecified (principal)
CPT/HCPCS: 36415; 80053; 80061; 84443; 85025

== ENCOUNTER → 2024-04-09 | Outpatient (CLI) | payer OTHER, SELFPAY ==
[2024-04-09 17:45] LABS: Absolute Lymphocyte Count 3.04 X10^3/uL (0.83-4.51); Absolute Neutrophil Count 6.5 X10^3/uL (2.0-7.7); Basophil# 0.05 X10^3/uL; Basophil% 0.5 % (0-1); Eosinophil# 0.07 X10^3/uL; Eosinophils% 0.7 % (0-5); Hematocrit 46.3 % (40-54); Hemoglobin 15.7 g/dL (13.0-16.5); Lymphocyte # 3.04 X10^3/ul (0.83-4.51); Lymphocyte % 28.9 % (19-41); Mean Corp Hgb Conc 33.9 g/dL (32-36); Mean Corpuscular Volume 88.5 fL (80-94); Mean Platelet Vol. 9.4 fl (6.2-12.0); Monocyte# 0.84 X10^3/uL; NRBC Flagged by Analyzer 0 % (0-5); Neutrophil # 6.48 X10^3/uL (2.7-7.7); Neutrophil % 61.6 % (47-70); Platelet Count 321 K/mm3 (150-450); RBC Distribution Width CV 11.9 % (11.6-14.6); RBC Distribution Width SD 38.3 fl (35.1-43.9); Red Blood Count 5.23 M/mm3 (4.6-6.2); White Blood Count 10.5 K/mm3 (4.4-11.0)
[2024-04-09 18:17] LABS: ALB/GLOB Ratio 1.2 RATIO (0.9-2.4); AST(SGOT) 27 U/L (15-37); Alanine Aminotransfer ALT/SGPT 68 U/L (16-61); Albumin, Serum 4.1 g/dL (3.2-5.0); Alkaline Phosphatase 70 U/L (45-117); Anion Gap 3 (5-15); BUN 12 mg/dL (7-18); BUN/Creat Ratio 12.6 RATIO (10-20); Calcium,Total 9.5 mg/dL (8.5-10.1); Chloride 106 mmol/L (98-107); Cholesterol 164 mg/dL (200); Creatinine, Serum 0.96 mg/dL (0.70-1.30); EST Glomerular Filtration Rate 92 mL/min (>60); Est Glom Filt Rate - Afr Amer 112 mL/min (>60); Globulin 3.5 g/dL (2.2-4.2); Glucose 88 mg/dL (74-106); High Density Lipoprotein 42 mg/dL; Magnesium 2.4 mg/dL (1.6-2.6); Potassium 4.1 mmol/L (3.5-5.1); Protein, Total 7.6 g/dL (6.4-8.2); Sodium Level 140 mmol/L (136-145); Triglycerides 88 mg/dL; Very Low Density Lipoprotein 18 mg/dL (5-40)
== END | disposition home or self-care (01) ==
LOC: MFPLAB 16:52
PROVIDERS: PCP Family Medicine; Referring Provider Family Medicine; Visit Provider Family Medicine
DX: E78.5 Hyperlipidemia, unspecified (principal); R03.0 Elevated blood-pressure reading, without diagnosis of hypertension
CPT/HCPCS: 36415; 80053; 80061; 83735; 84443; 85025

== ENCOUNTER → 2024-04-23 | Outpatient (CLI) | payer OTHER, SELFPAY ==
[2024-04-23 18:37] LABS: Hepatitis B Surface Antibody Reactive; Hepatitis B Surface Antigen Non-Reactive (Nonreactive); Hepatitis C Antibody Non-Reactive (Nonreactive)
== END | disposition home or self-care (01) ==
LOC: MTLAB 16:37
PROVIDERS: PCP Family Medicine; Referring Provider Family Medicine; Visit Provider Family Medicine
DX: R79.89 Other specified abnormal findings of blood chemistry (principal)
CPT/HCPCS: 36415; 86706; 86803; 87340

== ENCOUNTER → 2024-10-08 | Outpatient (CLI) | payer OTHER, SELFPAY ==
[2024-10-08 12:35] LABS: Absolute Lymphocyte Count 2.26 X10^3/uL (0.83-4.51); Absolute Neutrophil Count 5.3 X10^3/uL (2.0-7.7); Basophil# 0.04 X10^3/uL; Basophil% 0.5 % (0-1); Eosinophil# 0.06 X10^3/uL; Eosinophils% 0.7 % (0-5); Hematocrit 46.3 % (40-54); Lymphocyte # 2.26 X10^3/ul (0.83-4.51); Mean Corp Hgb Conc 34.6 g/dL (32-36); Mean Corpuscular Hgb 30.8 pg (27.0-32.0); Mean Corpuscular Volume 89.2 fL (80-94); Mean Platelet Vol. 9.8 fl (6.2-12.0); Monocyte# 0.72 X10^3/uL; Monocyte% 8.6 % (0-10); NRBC Flagged by Analyzer 0 % (0-5); Neutrophil # 5.26 X10^3/uL (2.7-7.7); Neutrophil % 62.7 % (47-70); Platelet Count 307 K/mm3 (150-450); RBC Distribution Width CV 11.7 % (11.6-14.6); RBC Distribution Width SD 37.5 fl (35.1-43.9); Red Blood Count 5.19 M/mm3 (4.6-6.2); White Blood Count 8.4 K/mm3 (4.4-11.0)
[2024-10-08 12:45] LABS: ALB/GLOB Ratio 1.5 RATIO (0.9-2.4); AST(SGOT) 31 U/L (<=37); Alanine Aminotransfer ALT/SGPT 54 U/L (<=46); Albumin, Serum 4.3 g/dL (3.5-5.0); Alkaline Phosphatase 69 U/L (40-129); Anion Gap 12 (5-15); BUN 14 mg/dL (4-19); BUN/Creat Ratio 14.5 RATIO (10-20); Calcium,Total 9.3 mg/dL (7.6-11.0); Carbon Dioxide 22.4 mmol/L (21.0-32.0); Chloride 104 mmol/L (98-108); Cholesterol 150 mg/dL (<=200); Creatinine, Serum 0.95 mg/dL (0.70-1.20); EST Glomerular Filtration Rate 103 (>60); Globulin 2.8 g/dL (2.2-4.2); Glucose 103 mg/dL (70-99); High Density Lipoprotein 42 mg/dL; Low Density Lipoprotein Calc. 93 mg/dL; Potassium 4.5 mmol/L (3.3-5.1); Protein, Total 7.1 g/dL (5.9-8.4); Sodium Level 138 mmol/L (133-145); Total Bilirubin 0.91 mg/dL (0.00-1.30); Triglycerides 74 mg/dL; Very Low Density Lipoprotein 15 mg/dL (5-40); cholesterol:hdl ratio screen 3.59
[2024-10-09 16:45] LABS: Hemoglobin A1c 5.7 % (<=5.6)
== END | disposition home or self-care (01) ==
LOC: MFPLAB 10:58
PROVIDERS: PCP Family Medicine; Referring Provider Family Medicine; Visit Provider Family Medicine
DX: R73.09 Other abnormal glucose (principal); E78.5 Hyperlipidemia, unspecified
CPT/HCPCS: 36415; 80053; 80061; 83036; 85025